=== PATIENT | female | born 1985 | race African-American/Black ===

== ENCOUNTER 2020-06-14 14:09 | Emergency (ER) | payer SELFPAY ==
[~2020-06-14] VITALS: Ht 172.7 cm; Wt 81.6 kg
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
[2020-06-14] MEDS ORDERED: NIZORAL 2% C1 APPLIC TOPIC (16:06)
[2020-06-14] MEDS ORDERED: LIDEX15 GM TOPIC (16:06)
[2020-06-14] MEDS ORDERED: ROBAXIN-750750 MG PO (16:06)
[2020-06-14] MEDS ORDERED: IBUPROFEN600 M1 ORAL (16:06)
[2020-06-14 16:16] VITALS: BP 116/73
== END 2020-06-14 16:17 | disposition home or self-care (01) ==
LOC: EMR 15:24
DX: M62.830 Muscle spasm of back (principal); L65.9 Nonscarring hair loss, unspecified; V43.62XD Car passenger injured in collision with other type car in traffic accident, subsequent encounter
CPT/HCPCS: 81025; 99283